=== PATIENT | female | born 2000 | race African-American/Black ===

== ENCOUNTER 2022-05-02 00:05 | Emergency (ER) | payer BC ==
[2022-05-02] MEDS ORDERED: ONDANSETRON 4 MG/2 ML VIAL ONE (00:17)
[2022-05-02] MEDS ORDERED: KETOROLAC TROMETHAMINE 30 MG/1 ML VIAL ONE (00:18)
[2022-05-02] MEDS ORDERED: KETOROLAC TROMETHAMINE 30 MG/1 ML VIAL IVPUSH ONE (00:23)
[2022-05-02] MEDS ORDERED: ONDANSETRON 4 MG/2 ML VIAL IVPUSH ONE (00:23)
[2022-05-02] MEDS ORDERED: SODIUM CHLORIDE 1,000 ML IV STA ×2 (00:23→00:57)
[2022-05-02 00:36] VITALS: TEMP 97.9; BMI 22.1
[2022-05-02] MEDS ORDERED: ACETAMINOPHEN 1000 MG/100 ML BAG IVPB ONE (00:57)
[2022-05-02] MEDS ORDERED: ACETAMINOPHEN INJECTION 100 ML IVPB ONE (00:57)
[2022-05-02 01:35] LABS: BASO % 0.6 % (0-2.0); EOS % 0.4 % (0-4.5); HEMATOCRIT 35.9 % (32.4-45.2); HEMOGLOBIN 11.8 GM/dL (10.7-15.3); LYMPH % 20.5 % (8-40); MCHC 32.9 g/dl (32.0-36.0); MEAN PLT VOLUME 10.6 fl (7.5-11.1); NEUT % 74.5 % (42.8-82.8); PLATELET COUNT 188 10^3/uL (134-434); RBC 4.22 M/mm3 (3.60-5.2); WHITE BLOOD COUNT 6.4 K/mm3 (4.0-10.0)
[2022-05-02 01:49] LABS: ALBUMIN 4.3 g/dl (3.4-5.0); BLOOD UREA NITROGEN 9.3 mg/dL (7-18); CALCIUM 9.5 mg/dL (8.5-10.1)
[2022-05-02 01:53] LABS: BILIRUBIN,TOTAL 0.6 mg/dL (0.2-1)
[2022-05-02 01:59] VITALS: BP 104/50; PULSE 73
== END 2022-05-02 02:16 | disposition home or self-care (01) ==
LOC: FER 00:05
PROC: 3E0333Z Introduction of Anti-inflammatory into Peripheral Vein, Percutaneous Approach (ICD-10-PCS; principal; 2022-05-02)
PROC: 3E0333Z Introduction of Anti-inflammatory into Peripheral Vein, Percutaneous Approach (ICD-10-PCS; 2022-05-02)
PROC: 3E033GC Introduction of Other Therapeutic Substance into Peripheral Vein, Percutaneous Approach (ICD-10-PCS; 2022-05-02)
PROC: 3E0337Z Introduction of Electrolytic and Water Balance Substance into Peripheral Vein, Percutaneous Approach (ICD-10-PCS; 2022-05-02)
PROC: 3E0337Z Introduction of Electrolytic and Water Balance Substance into Peripheral Vein, Percutaneous Approach (ICD-10-PCS; 2022-05-02)
DX: N94.6 Dysmenorrhea, unspecified (principal)
CPT/HCPCS: 36415; 80053; 85025; 99284-25